=== PATIENT | male | born 1970 ===

== ENCOUNTER 2025-07-05 08:31 | Emergency (ER) | payer OTHER ==
[2025-07-05 08:49] LABS: Absolute Lymphocytes (CBC) 0.9 K/uL (0.7-4.9); Hematocrit 40.7 % (39.6-49.0); Hemoglobin 13.1 g/dL (13.6-17.9); MCH 23.5 pg (27.0-35.0); MCHC 32.2 g/dL (32.0-36.0); MCV 73.0 fL (80-100); MPV 10.8 fL (7.6-11.3); Nucleated RBC Absolute Count 0.0 (0-0); Nucleated Red Blood Cells % 0.0 % (0-0); RBC Red Blood Cell Count 5.58 M/uL (4.33-5.43); White Blood Count 8.10 thou/uL (4.3-10.9)
[2025-07-05 08:50] LABS: Urine Microscopic Reflex YN NO UMIC
[2025-07-05] MEDS ORDERED: NA CHLORIDE 0.9% 1,000 ML ONE (08:50)
[2025-07-05 09:42] LABS: Anisocytosis 1+; Blood Morphology Comment NOTED (NOT SEEN); Poikilocytosis 1+; White Blood Cell Scan OK (OK)
[2025-07-05 09:43] LABS: Burr Cells 1+; Ovalocytes 1+
[2025-07-05 09:47] LABS: ALT/SGPT 29.0 U/L (16-61); AST/SGOT 27.0 U/L (15-37); Albumin 3.9 g/dL (3.4-5.0); Albumin/Globulin Ratio 1.0 (1.1-1.8); Alkaline Phosphatase 44.0 U/L (45-117); Anion Gap 10.1 mEq/L (5.0-15.0); BUN Blood Urea Nitrogen 15.0 mg/dL (7-18); Globulin 3.9 g/dL (2.3-3.5); Glucose Level 130.0 mg/dL (74-106); Lipase 33.0 U/L (13-75); Potassium 3.1 mEq/L (3.5-5.1)
--- NOTE | 2025-07-05 10:17 | RAD REPORT ---
EXAMINATION: CT ABDOMEN AND PELVIS WITH CONTRAST CLINICAL INDICATION: ABD PAIN TECHNIQUE: CT abdomen and pelvis was performed, after the administration of IV contrast, as per [facility] protocol. Axial, sagittal and coronal reconstructions were obtained. One or more of the following dose reduction techniques were used: Automated exposure control, adjustment of the mA and k V according to patient size, and iterative reconstruction. Unless otherwise specified, incidental findings do not require dedicated imaging follow-up. COMPARISON: No prior exam. FINDINGS: LOWER CHEST: The visualized lung bases are clear. LIVER: Mild fatty liver. There are numerous small low-density lesions throughout the liver parenchyma which are indeterminate. Grossly unremarkable gallbladder. SPLEEN: Normal size. No focal lesion. PANCREAS: No mass, ductal dilation, or jean-pierre-pancreatic fluid. ADRENALS: Normal; no mass. KIDNEYS: Normal size and contour. No hydronephrosis. GASTROINTESTINAL TRACT: No evidence of free air, significant intra-abdominal free fluid, bowel obstru ction or abscess. Moderate stool is present throughout the colon. APPENDIX: Normal appendix. LYMPH NODES: No lymphadenopathy. MUSCULOSKELETAL: Mild multilevel spinal degenerative changes. ADDITIONAL FINDINGS: Small fat-containing clinical hernia. IMPRESSION: No acute abnormalities seen in the abdomen or pelvis. Mild fatty liver with numerous small hypodense lesions which are indeterminate. Benign cysts or bilia ry hamartomas are favored, however recommend nonemergent MRI liver protocol follow-up.
--- NOTE | 2025-07-05 10:37 | ER ---
Nurse's Notes [facility] Name: Huber Noel Age: 54 yrs Sex: Male : 1970 Arrival Date: 07/05/2025 Time: 08:31 Bed 6 Private MD: Diagnosis: Nausea with vomiting, unspecified;Diarrhea, unspecified;Abdominal pain, Generalized Presentation: 07/05 08:39 Coronavirus screen: At this time, the client does not indicate any symptoms associated iw with coronavirus-19. Ebola Screen: No symptoms or risks identified at this time. Initial Sepsis Screen: Does the patient meet any 2 criteria? No. Patient's initial sepsis screen is negative. Does the patient have a suspected source of infection? No. Patient's initial sepsis screen is negative. Risk Assessment: Do you want to hurt yourself or someone else? Patient reports no desire to harm self or others. Onset of symptoms was July 05, 2025. 08:39 Acuity: REGAN 3 iw 08:39 Method Of Arrival: [employer]: [place] [employer] iw Triage Assessment: 08:39 General: Appears in no apparent distress. Behavior is calm, cooperative. GI: Reports iw nausea, vomiting. Historical: - Allergies: 08:45 No Known Allergies; iw - PMHx: 08:45 Hypertensive disorder; iw - PSHx: 08:45 None; iw - Infectious Disease History:: Denies. Screenin:30 [facility] ED Fall Risk Assessment (Adult) History of falling in the last 3 months, iw including since admission No falls in past 3 months (0 pts) Confusion or Disorientation No (0 pts) Intoxicated or Sedated No (0 pts) Impaired Gait No (0 pts) Mobility Assist Device Used No (0 pt) Altered Elimination No (0 pt) Score/Fall Risk Level 0 - 2 = Low Risk Oriented to surroundings, Maintained a safe environment. Abuse screen: Denies threats or abuse. Nutritional screening: No deficits noted. Tuberculosis screening: No symptoms or risk factors identified. Assessment: 08:39 General: Appears in no apparent distress. Behavior is calm, cooperative. Pain: Denies iw pain. Neuro: Level of Consciousness is awake, alert, obeys commands, Oriented to person, place, time, situation, Moves all extremities. Full function. Cardiovascular: Patient's skin is warm and dry. GI: Abdomen is flat, non-distended. GI: Reports nausea, vomiting. Derm: Skin is intact, is healthy with good turgor. Musculoskeletal: Range of motion: intact in all extremities. 09:14 Reassessment: Patient appears in no apparent distress at this time. Patient and/or iw family updated on plan of care and expected duration. Pain level reassessed. Patient is alert, oriented x 3, equal unlabored respirations, skin warm/dry/pink. 10:40 Reassessment: Patient appears in no apparent distress at this time. Patient and/or iw family updated on plan of care and expected duration. Pain level reassessed. Patient is alert, oriented x 3, equal unlabored respirations, skin warm/dry/pink. Patient states feeling better. Patient states symptoms have improved. Vital Signs: 08:45 BP 168 / 74; Pulse 69; Resp 16; Temp 98.1; Pulse Ox 98% on R/A; Weight 106.14 kg; iw Height 6 ft. 0 in. ; Pain 6/10; 09:18 BP 162 / 83; Pulse 75; Resp 18; Pulse Ox 100% ; af3 09:47 BP 159 / 90; Pulse 74; Resp 18; Pulse Ox 100% on R/A; af3 10:24 BP 164 / 83; Pulse 74; Resp 18; Pulse Ox 100% on R/A; af3 08:45 Body Mass Index 31.74 (106.14 kg, 182.88 cm) iw 08:45 Pain Scale: Adult iw ED Course: 08:33 Patient arrived in ED. iw 08:34 Joselyn Harding FNP-C is [facility]. kb 08:34 Isidoro Anderson MD is Attending Physician. kb 08:39 Triage completed. iw 08:44 Constance Mckeon, KAMRYN is Primary Nurse. iw 08:45 Initial lab(s) drawn, by me, sent to lab. Urine collected: clean catch specimen, clear. iw Maintain EMS IV. Dressing intact. Good blood return noted. Site clean \T\ dry. Gauge \T\ site: 20 RAC. Flushed with 10 mL NS. 09:14 Patient has correct armband on for positive identification. iw 10:12 CT Abd/Pelvis - IV Contrast Only In Process Unspecified. EDMS 10:43 No provider procedures requiring assistance completed. IV discontinued, intact, iw bleeding controlled, No redness/swelling at site. Pressure dressing applied. Administered Medications: 09:10 Drug: NS 0.9% IV 1000 ml IV at 1 bolus Per protocol; to be given as a bolus over 60 iw minutes Route: IV; Rate: 1 bolus; Site: right antecubital; 10:20 Follow up: IV Status: Completed infusion iw Outcome: 10:36 Discharge ordered by MD. miller 10:43 Discharged to Law Enforcement iw 10:43 Condition: good 10:43 Discharge instructions given to patient, Instructed on discharge instructions, follow up and referral plans. medication usage, Demonstrated understanding of instructions, follow-up care, medications, 10:44 Patient left the ED. iw Signatures: Dispatcher [employer] EDMS Joselyn Harding, CLINICAL DOCUMENTATION CONSULTANT-C CLINICAL DOCUMENTATION CONSULTANT-Constance Piper, RN RN iw Anne Machuca RN RN af3
--- NOTE | 2025-07-05 10:37 | EDPHYS ---
Physician Documentation [facility] Name: Huber Noel Age: 54 yrs Sex: Male : 1970 Arrival Date: 07/05/2025 Time: 08:31 Bed 6 Private MD: ED Physician Isidoro Anderson HPI: 07/05 10:47 This 54 yrs old Unknown Male presents to ER via Law Enforcement with complaints of kb Abdominal Pain, Nausea/Vomiting/Diarrhea. 10:47 Pt is a 54 year old male who presents for nausea, vomiting, diarrhea that started last kb night after eating pork, then developed LLQ pain. STates he hasn't been able to tolerate anything by mouth. Denies fever. Historical: - Allergies: 08:45 No Known Allergies; iw - PMHx: 08:45 Hypertensive disorder; iw - PSHx: 08:45 None; iw - Infectious Disease History:: Denies. ROS: 10:47 Constitutional: As per HPI kb Exam: 10:47 Constitutional: This is a well developed, well nourished patient who is awake, alert, kb and in no acute distress. Head/Face: Normocephalic, atraumatic. ENT: Moist Mucous membranes Cardiovascular: Regular rate Respiratory: Respirations even and unlabored. No increased work of breathing. Talking in full sentences Skin: Warm, dry with normal turgor. Normal color. MS/ Extremity: Pulses equal, no cyanosis. Neurovascular intact. Full, normal range of motion. Neuro: Awake and alert, GCS 15, oriented to person, place, time, and situation. 10:47 Abdomen/GI: Inspection: abdomen appears normal, Bowel sounds: normal, Palpation: soft, in all quadrants, moderate abdominal tenderness, in the left lower quadrant, Vital Signs: 08:45 BP 168 / 74; Pulse 69; Resp 16; Temp 98.1; Pulse Ox 98% on R/A; Weight 106.14 kg; iw Height 6 ft. 0 in. ; Pain 610; 09:18 BP 162 / 83; Pulse 75; Resp 18; Pulse Ox 100% ; af3 09:47 BP 159 / 90; Pulse 74; Resp 18; Pulse Ox 100% on R/A; af3 10:24 BP 164 / 83; Pulse 74; Resp 18; Pulse Ox 100% on R/A; af3 08:45 Body Mass Index 31.74 (106.14 kg, 182.88 cm) iw 08:45 Pain Scale: Adult iw MDM: 08:34 Medical Screening Exam initiated 10:48 Differential diagnosis: Nonspecific abd pain, diverticulitis, viral gastroenteritis, kb colitis. Data reviewed: vital signs, nurses notes. Historians other than the Patient: EMS: [facility] - [facility]. Counseling: I had a detailed discussion with the patient and/or guardian regarding the historical points, exam findings, and any diagnostic results supporting the discharge/admit diagnosis, lab results, radiology results, the need for outpatient follow up, a family practitioner, to return to the emergency department if symptoms worsen or persist or if there are any questions or concerns that arise at home. 10:48 I considered the following discharge prescriptions or medication management in the emergency department Antibiotics: At this time antibiotics are not recommended. 07/05 08:35 Order name: CBC with Diff; Complete Time: 09:45 kb 07/05 08:35 Order name: CMP; Complete Time: 09:50 kb 07/05 08:35 Order name: Lipase; Complete Time: 09:50 kb 07/05 08:35 Order name: UA Rfx Pepe Cult if indicated; Complete Time: 08:51 kb 07/05 08:53 Order name: CBC Smear Scan; Complete Time: 09:45 EDMS 07/05 08:35 Order name: CT Abd/Pelvis - IV Contrast Only; Complete Time: 10:19 kb 07/05 08:35 Order name: IV Saline Lock; Complete Time: 08:46 kb 07/05 08:35 Order name: Labs collected and sent; Complete Time: 08:46 kb 07/05 08:56 Order name: Misc. Order; Complete Time: 09:10 sp 07/05 08:56 Order name: Misc. Order: LAB RECOLLECT LAV GREEN; Complete Time: 09:10 sp Administered Medications: 09:10 Drug: NS 0.9% IV 1000 ml IV at 1 bolus Per protocol; to be given as a bolus over 60 iw minutes Route: IV; Rate: 1 bolus; Site: right antecubital; 10:20 Follow up: IV Status: Completed infusion iw Disposition: 11:16 Co-signature as Attending Physician, Isidoro Anderson MD I reviewed the patient's care rn provided by the Advanced Practice Provider and agree with the diagnosis and treatment plan. Disposition Summary: 07/05/25 10:36 Discharge Ordered Notes: Location: Home kb Condition: Stable kb Diagnosis - Nausea with vomiting, unspecified kb - Diarrhea, unspecified kb - Abdominal pain, Generalized kb Followup: kb - With: Emergency Department - When: As needed - Reason: Worsening of condition Followup: kb - With: Private Physician - When: 2 - 3 days - Reason: Recheck today's complaints, Continuance of care, Re-evaluation by your physician Discharge Instructions: - Discharge Summary Sheet kb - Nausea and Vomiting, Adult, [id number] kb - Abdominal Pain, Adult, [id number] kb Forms: - Medication Reconciliation Form kb - Antibiotic Education kb - Prescription Opioid Use kb - Patient Portal Instructions kb - Leadership Thank You Letter kb Prescriptions: - ondansetron 4 mg Oral Tablet,disintegrating - take 1 tablet ORAL route every 6 hours as needed for nausea and vomiting; 12 kb tablet; Refills: 0, Product Selection Permitted Signatures: Dispatcher [employer] EDMS Joselyn Harding, AD-C DASHBOARD DEVELOPER-Alexandra Carolina Irene, RN RN iw Isidoro Anderson MD MD manager intern: (The following items were deleted from the chart) 08:35 08:35 CBC+H.LAB.BRZ ordered. EDMS EDMS 08:35 08:35 COMPREHENSIVE METABOLIC PANEL+C.LAB.BRZ ordered. EDMS EDMS 08:35 08:35 LIPASE+C.LAB.BRZ ordered. EDMS EDMS 08:35 08:35 UA Rfx Pepe Cult if indicated+U.LAB.BRZ ordered. EDMS EDMS 08:35 08:35 Abdomen Pelvis W Con+CT.RAD.BRZ ordered. EDMS EDMS
[2025-07-05 11:50] VITALS: TEMP 98.1
[2025-07-05 11:58] VITALS: O2SAT 100
[2025-07-05 12:05] VITALS: BP 159/90
== END 2025-07-05 10:44 | disposition home or self-care (01) ==
LOC: ER 08:31
DX: R11.2 Nausea with vomiting, unspecified (principal); R19.7 Diarrhea, unspecified; R10.84 Generalized abdominal pain
CPT/HCPCS: 85025; 36415; 81003; 83690; 80053; 74177; 96360; 99284; Q9967; J7030